=== PATIENT | female | born 2000 | race Caucasian/White ===

== ENCOUNTER 2021-12-03 09:30 | Outpatient (RCR) | payer OTHER, SELFPAY ==
[2021-11-17 10:30] VITALS: BP 99/49; PULSE 81; TEMP 36.4; O2SAT 100
[2021-11-17] MEDS: ACETAMINOPHEN 325 MG TABLET 650 MG PO (10:48)
[2021-11-17] MEDS: diphenhydrAMINE HCl INJ 50 MG/ML VIAL 25 MG IV PUSH (10:49)
[2021-11-17] MEDS: IRON SUCROSE COMPLEX 200 MG in SODIUM CHLORIDE 0.9% IV 100 ML 440 MG IVPB (10:57)
[2021-11-17 11:44] VITALS: BP 109/64
[2021-11-20 11:44] VITALS: BP 118/51; PULSE 81; TEMP 36.8; O2SAT 99
[2021-11-20] MEDS: ACETAMINOPHEN 325 MG TABLET 650 MG PO (12:00)
[2021-11-20] MEDS: diphenhydrAMINE HCl INJ 50 MG/ML VIAL 25 MG IV PUSH (12:00)
[2021-11-20] MEDS: IRON SUCROSE COMPLEX 200 MG in SODIUM CHLORIDE 0.9% IV 100 ML 440 MG IVPB (12:16)
[2021-11-20 13:11] VITALS: BP 106/47
[2021-12-03 10:19] VITALS: BP 106/55; PULSE 75; RESP 18; TEMP 36.9; O2SAT 99
[2021-12-03] MEDS: ACETAMINOPHEN 325 MG TABLET 650 MG PO (10:27)
[2021-12-03] MEDS: diphenhydrAMINE HCl INJ 50 MG/ML VIAL 25 MG IV PUSH (10:27)
[2021-12-03] MEDS: IRON SUCROSE COMPLEX 200 MG in SODIUM CHLORIDE 0.9% IV 100 ML 440 MG IVPB (10:39)
[2021-12-03 11:21] VITALS: BP 103/50
--- NOTE | 2021-12-03 11:25 | PC.NURSE ---
Discussed date and time of next scheduled appointment with patient. Patient verbalized understanding.
== END 2021-12-07 10:35 ==
LOC: AMCINF 09:30
PROVIDERS: Referring Provider Obstetrics & Gynecology; Visit Provider Internal Medicine Hematology & Oncology
DX: O99.019 Anemia complicating pregnancy, unspecified trimester (principal); D64.9 Anemia, unspecified; Z87.891 Personal history of nicotine dependence; Z3A.00 Weeks of gestation of pregnancy not specified
CPT/HCPCS: 96365; 96374; 96375; A9270; J1200; J1756